=== PATIENT | male | born 1980 | race American Indian/Alaskan Native ===

== ENCOUNTER 2019-01-25 00:51 | Emergency (ER) | payer OTHER ==
[2019-01-25 01:06] VITALS: BP 123/86
[2019-01-25] MEDS ORDERED: ULTRAM PO ONE (06:21)
[2019-01-25] MEDS ORDERED: TRIMOX PO ONE (06:21)
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
== END 2019-01-25 06:56 | disposition home or self-care (01) ==
LOC: ED 00:51
DX: S39.012A Strain of muscle, fascia and tendon of lower back, initial encounter (principal); K02.9 Dental caries, unspecified; I10 Essential (primary) hypertension; F17.200 Nicotine dependence, unspecified, uncomplicated; F12.10 Cannabis abuse, uncomplicated; Y04.8XXA Assault by other bodily force, initial encounter; Y93.89 Activity, other specified; Y92.89 Other specified places as the place of occurrence of the external cause; Y99.8 Other external cause status
CPT/HCPCS: 99282

== ENCOUNTER 2019-02-11 03:11 | Emergency (ER) | payer SELFPAY ==
[2019-02-11 03:45] VITALS: BP 137/99
== END 2019-02-11 07:21 | disposition left against medical advice (07) ==
LOC: ED 03:11
DX: M79.89 Other specified soft tissue disorders (principal); Z53.21 Procedure and treatment not carried out due to patient leaving prior to being seen by health care provider

== ENCOUNTER 2019-11-03 18:58 | Emergency (ER) | payer SELFPAY ==
--- NOTE | 2019-11-03 20:33 | Emergency Department Report ---
Chief Complaint: Urogenital-Male Stated Complaint: STD CHECK Time Seen by Provider: 11/03/19 20:22 - HPI History of Present Illness: Pt presents for HIV testing x today. Denies fever/chills/body aches, dysuria, penile discharge/lesions, hematuria, or other symptoms. - Exam Vital Signs: Vital Signs 11/03/19 19:34 Temperature 98.0 F Pulse Rate 77 Respiratory 18 Rate Blood Pressure 137/89 O2 Sat by Pulse 100 Oximetry MSE screening note: Focused history and physical exam performed. Due to findings the following was ordered: Pt presents for HIV testing x today. Denies fever/chills/body aches, dysuria, penile discharge/lesions, hematuria, or other symptoms. ED Disposition for MSE Condition: Stable
[2019-11-03] MEDS ORDERED: AZITHROMYCIN 250 MG TAB PO ONE (20:36)
[2019-11-03] MEDS ORDERED: LIDOCAINE-MPF (1%) 10 MG/1 ML VIAL 5 ML INFILTRATI ONE (20:36)
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
[2019-11-03 21:40] LABS: Basophils % (Auto) 0.6 % (0.0-1.8); Eosinophils # (Auto) 0.2 K/mm3 (0.0-0.4); Eosinophils % (Auto) 3.4 % (0.0-4.3); Hematocrit 44.9 % (35.5-45.6); Hemoglobin 15.3 gm/dl (11.8-15.2); Lymphocytes # (Auto) 2.3 K/mm3 (1.2-5.4); Lymphocytes % (Auto) 33.9 % (13.4-35.0); Mean Corpuscular HGB Conc 34 % (32-34); Mean Corpuscular Volume 91 fl (84-94); Monocytes # (Auto) 0.6 K/mm3 (0.0-0.8); Monocytes % (Auto) 8.9 % (0.0-7.3); Platelet Count 224 K/mm3 (140-440); Red Blood Count 4.91 M/mm3 (3.65-5.03)
[2019-11-03 22:03] LABS: Alanine Aminotransferase 15 units/L (7-56); Albumin 3.9 g/dL (3.9-5); BUN/Creatinine Ratio 10; Blood Urea Nitrogen 12 mg/dL (9-20); Calcium 9.2 mg/dL (8.4-10.2); Hemolysis Index 8
[2019-11-03 22:10] VITALS: BP 122/84
== END 2019-11-03 22:23 | disposition home or self-care (01) ==
LOC: ED 18:58
DX: Z11.3 Encounter for screening for infections with a predominantly sexual mode of transmission (principal); I10 Essential (primary) hypertension; F17.200 Nicotine dependence, unspecified, uncomplicated
CPT/HCPCS: 36415; 80053; 83690; 85025; 87806; 96372; 99283; J0696

== ENCOUNTER 2021-12-13 23:37 | Emergency (ER) | payer SELFPAY ==
[2021-12-14] MEDS ORDERED: SODIUM CHLORIDE 0.9% 1000 ML 1,000 ML IV ONE ×2 (00:09→02:00)
[2021-12-14 00:10] LABS: Basophils % (Auto) 0.3 % (0.0-1.8); Eosinophils # (Auto) 0.1 K/mm3 (0.0-0.4); Eosinophils % (Auto) 0.7 % (0.0-4.3); Hematocrit 51.7 % (35.5-45.6); Lymphocytes # (Auto) 1.3 K/mm3 (1.2-5.4); Lymphocytes % (Auto) 11.6 % (13.4-35.0); Mean Corpuscular HGB Conc 33 % (32-34); Mean Corpuscular Volume 94 fl (84-94); Monocytes # (Auto) 0.9 K/mm3 (0.0-0.8); Monocytes % (Auto) 8.3 % (0.0-7.3); Platelet Count 312 K/mm3 (140-440); Red Blood Count 5.51 M/mm3 (3.65-5.03); Red Cell Distribution Width 13.3 % (13.2-15.2)
[2021-12-14 00:30] LABS: Alanine Aminotransferase 16 units/L (7-56); Albumin 4.4 g/dL (3.9-5); BUN/Creatinine Ratio 11; Blood Urea Nitrogen 16 mg/dL (9-20); Calcium 9.3 mg/dL (8.4-10.2); Hemolysis Index 24
--- NOTE | 2021-12-14 00:50 | Emergency Department Report ---
ED General Adult HPI - General Chief complaint: Abdominal Pain Stated complaint: BODY CRAMPS Time Seen by Provider: 12/14/21 00:41 Source: patient Mode of arrival: Ambulatory Limitations: No Limitations - History of Present Illness Initial comments: Patient is 41 years old male, unknown past medical history or psychiatric history. Patient presented to the ER for evaluation of diffuse abdominal pain and cramping. Patient stated that he feel he is dehydrated. Patient spoke in a very soft tone and is delusional and paranoid. Patient with very disorganized thoughts. Patient stated that he feel like people are trying to get him. He denied any suicidal homicidal ideation. He also denied any visual or auditory hallucination. Severity scale (0 -10): 5 - Related Data Previous Rx's Medication Instructions Recorded Last Taken Type DOXYCYCLINE Hyclate [Vibramycin] 100 mg PO Q12HR #10 capsule 12/15/21 Unknown Rx Allergies Allergy/AdvReac Type Severity Reaction Status Date / Time No Known Allergies Allergy Verified 02/11/19 08:45 ED Review of Systems ROS: Stated complaint: BODY CRAMPS Other details as noted in HPI Comment: All other systems reviewed and negative Constitutional: denies: chills, fever Respiratory: denies: orthopnea, shortness of breath, SOB with exertion, SOB at rest Cardiovascular: palpitations. denies: chest pain Gastrointestinal: abdominal pain. denies: nausea, vomiting, diarrhea, constipation, hematemesis, melena Musculoskeletal: back pain, myalgia Neurological: denies: headache, weakness, numbness, paresthesias, confusion, abnormal gait Psychiatric: anxiety. denies: auditory hallucinations, visual hallucinations, homicidal thoughts, suicidal thoughts ED Past Medical Hx - Past Medical History Previous Medical History?: Yes Hx Hypertension: Yes - Surgical History Past Surgical History?: No - Social History Smoking Status: Current Every Day Smoker - Medications Home Medications: Home Medications Medication Instructions Recorded Confirmed Last Taken Type DOXYCYCLINE Hyclate [Vibramycin] 100 mg PO Q12HR #10 capsule 12/15/21 Unknown Rx ED Physical Exam - General Limitations: No Limitations General appearance: alert, anxious - Head Head exam: Present: atraumatic, normocephalic, normal inspection - Eye Eye exam: Present: normal appearance - ENT ENT exam: Present: mucous membranes dry - Neck Neck exam: Present: normal inspection, full ROM. Absent: tenderness, meningismus - Respiratory Respiratory exam: Present: normal lung sounds bilaterally - Cardiovascular Cardiovascular Exam: Present: tachycardia - GI/Abdominal GI/Abdominal exam: Present: soft, normal bowel sounds. Absent: distended, tenderness, guarding, rebound, rigid, organomegaly, mass, bruit, pulsatile mass, hernia - Extremities Exam Extremities exam: Present: normal inspection, full ROM, normal capillary refill. Absent: tenderness, pedal edema, joint swelling, calf tenderness - Back Exam Back exam: Present: normal inspection, full ROM. Absent: CVA tenderness (R), CVA tenderness (L), muscle spasm, paraspinal tenderness, vertebral tenderness - Neurological Exam Neurological exam: Present: alert, oriented X3, CN II-XII intact, normal gait, reflexes normal. Absent: motor sensory deficit - Psychiatric Psychiatric exam: Present: normal mood - Skin Skin exam: Present: warm, intact, normal color ED Course Vital Signs 12/13/21 12/14/21 12/14/21 23:39 02:07 03:44 Temperature 98.4 F Pulse Rate 119 H 107 H 106 H Respiratory 20 20 16 Rate Blood Pressure 154/96 137/50 137/88 [Right] O2 Sat by Pulse 98 97 97 Oximetry 12/14/21 12/14/21 12/14/21 05:34 11:04 20:13 Temperature 98.4 F 97.8 F Pulse Rate 96 H 96 H 84 Respiratory 16 18 18 Rate Blood Pressure 109/70 131/82 106/64 [Right] O2 Sat by Pulse 98 99 100 Oximetry 12/15/21 12/15/21 12/15/21 02:02 08:44 19:45 Temperature 98.5 F 97.2 F L 98.8 F Pulse Rate 72 86 70 Respiratory 16 16 18 Rate Blood Pressure 108/62 116/82 107/71 [Right] O2 Sat by Pulse 97 97 95 Oximetry ED Medical Decision Making - Lab Data Result diagrams: 12/14/21 14:16 12/14/21 14:16 - Medical Decision Making Patient is 41 years old male, unknown past medical history or psychiatric history. Patient presented to the ER for evaluation of diffuse abdominal pain and cramping. Patient stated that he feel he is dehydrated. Patient spoke in a very soft tone and is delusional and paranoid. Patient stated that he feel like people are trying to get him. He denied any suicidal homicidal ideation. He also denied any visual or auditory hallucination. Labs reviewed and showed a CK of 500. UDS is positive for cocaine and methamphetamine and marijuana. I believe patient is experiencing drug-induced psychosis. Patient is medically cleared to be evaluated by psychiatric team. Patient does not require involuntary hold. Critical care attestation.: If time is entered above; I have spent that time in minutes in the direct care of this critically ill patient, excluding procedure time. ED Disposition Clinical Impression: Paranoid, Methamphetamine abuse, Cocaine abuse, Drug-induced psychotic disorder Disposition: [address] [place] [address] Is pt being admited?: No Condition: Stable Prescriptions: DOXYCYCLINE Hyclate [Vibramycin] 100 mg PO Q12HR #10 capsule Referrals: SANJUANITA BARRON MD [Primary Care Provider] - 3-5 Days
[2021-12-14 03:20] LABS: Bacteria,Urine 1+ /HPF (Negative); Bilirubin,Urine NEG (Negative); Blood,Urine NEG (Negative); Color,Urine Yellow (Yellow); Hyaline Casts,Urine 2 /LPF; Mucus,Urine 2+ /HPF; Urobilinogen,Urine < 2.0 mg/dL (<2.0)
[2021-12-14 03:28] LABS: Amphetamine Screen,Urine PRESUMPTIVE POSITIVE; Benzodiazepines Screen,Urine PRESUMPTIVE NEGATIVE; Cannabinoid Screen,Urine PRESUMPTIVE POSITIVE; Cocaine Screen,Urine PRESUMPTIVE POSITIVE; Methadone Screen,Urine PRESUMPTIVE NEGATIVE; Opiate Screen,Urine PRESUMPTIVE NEGATIVE
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
[2021-12-14] MEDS ORDERED: LIDOCAINE-MPF (1%) 10 MG/1 ML VIAL 5 ML INFILTRATI ONE (11:53)
[2021-12-14] MEDS ORDERED: LORazepam 2 MG/ML VIAL IM PRN (11:54)
[2021-12-14] MEDS ORDERED: HALOPERIDOL LACTATE 5 MG/1 ML INJ IM PRN (11:54)
--- NOTE | 2021-12-14 11:56 | Event Note ---
Date: 12/14/21 The patient was evaluated in the emergency department for symptoms described in the history of present illness. He/she was evaluated in the context of the global COVID-19 pandemic, which necessitated consideration that the patient might be at risk for infection with the virus that causes COVID-19. Institutional protocols and algorithms that pertain to the evaluation of patients at risk for COVID-19 are in a state of rapid change based on information released by regulatory bodies including the CDC and federal and state organizations. These policies and algorithms were followed during the patient's care in the emergency department. Please note that these policies, procedures and recommendations changed on a rapid basis. Laboratory studies, vital signs, nursing documentation, ER documentation, and psychiatric documentation are reviewed and appreciated. 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 Urinalysis demonstrates bacteriuria and pyuria. Ceftriaxone, doxycycline ordered, in addition to cultures. The patient is awake and not in any acute distress. The patient was deemed medically suitable for psychiatric disposition and placement during his initial ER evaluation. The patient continues to remain medically suitable for psychiatric placement and disposition. He is currently pending psychiatric placement. Elevated CK less than 5000, patient young, and has an appropriate GFR. Elevated CK will decrease with with drug abstinence, rest, and copious oral hydration. Does not meet definition criteria for rhabdomyolysis. Patient remains medically suitable for psychiatric disposition. However, I anticipate that once the patient becomes sober, and metabolizes drug ingestions, we anticipate that he will be dischargeable. Vital Signs 12/13/21 12/14/21 12/14/21 23:39 02:07 03:44 Temperature 98.4 F Pulse Rate 119 H 107 H 106 H Respiratory 20 20 16 Rate Blood Pressure 154/96 137/50 137/88 [Right] O2 Sat by Pulse 98 97 97 Oximetry 12/14/21 12/14/21 05:34 11:04 Temperature 98.4 F Pulse Rate 96 H 96 H Respiratory 16 18 Rate Blood Pressure 109/70 131/82 [Right] O2 Sat by Pulse 98 99 Oximetry Lab Results 12/13/21 12/13/21 12/14/21 Range/Units 23:57 23:57 00:07 WBC 10.9 (4.5-11.0) K/mm3 RBC 5.51 H (3.65-5.03) M/mm3 Hgb 17.0 H (11.8-15.2) gm/dl Hct 51.7 H (35.5-45.6) % MCV 94 (84-94) fl MCH 31 (28-32) pg MCHC 33 (32-34) % RDW 13.3 (13.2-15.2) % Plt Count 312 (140-440) K/mm3 Lymph % (Auto) 11.6 L (13.4-35.0) % [place] % (Auto) 8.3 H (0.0-7.3) % Eos % (Auto) 0.7 (0.0-4.3) % Baso % (Auto) 0.3 (0.0-1.8) % Lymph # (Auto) 1.3 (1.2-5.4) K/mm3 [place] # (Auto) 0.9 H (0.0-0.8) K/mm3 Eos # (Auto) 0.1 (0.0-0.4) K/mm3 Baso # (Auto) 0.0 (0.0-0.1) K/mm3 Seg Neutrophils % 79.1 H (40.0-70.0) % Seg Neutrophils # 8.6 H (1.8-7.7) K/mm3 Sodium 134 L (137-145) mmol/L Potassium 4.0 (3.6-5.0) mmol/L Chloride 96.9 L (98-107) mmol/L Carbon Dioxide 21 L (22-30) mmol/L Anion Gap 20 mmol/L BUN 16 (9-20) mg/dL Creatinine 1.4 H (0.8-1.3) mg/dL Estimated GFR > 60 ml/min BUN/Creatinine Ratio 11 % Glucose 109 H (75-100) mg/dL Calcium 9.3 (8.4-10.2) mg/dL Total Bilirubin 1.00 (0.1-1.2) mg/dL AST 21 (5-40) units/L ALT 16 (7-56) units/L Alkaline Phosphatase 123 (35-129) units/L Total Creatine Kinase 548 H (55-170) units/L Total Protein 8.0 (6.3-8.2) g/dL Albumin 4.4 (3.9-5) g/dL Albumin/Globulin Ratio 1.2 % Lipase 19 (13-60) units/L Urine Color (Yellow) Urine Turbidity (Clear) Urine pH (5.0-7.0) Ur Specific [place] (1.003-1.030) Urine Protein (Negative) mg/dL Urine Glucose (UA) (Negative) mg/dL Urine Ketones (Negative) mg/dL Urine Blood (Negative) Urine Nitrite (Negative) Urine Bilirubin (Negative) Urine Urobilinogen (<2.0) mg/dL Ur Leukocyte Esterase (Negative) Urine WBC (Auto) (0.0-6.0) /HPF Urine RBC (Auto) (0.0-6.0) /HPF U Epithel Cells (Auto) (0-13.0) /HPF Urine Bacteria (Auto) (Negative) /HPF Hyaline Casts /LPF Urine Mucus /HPF Salicylates (2.8-20.0) mg/dL Urine Opiates Screen Urine Methadone Screen Acetaminophen (10.0-30.0) ug/mL Ur Barbiturates Screen Ur Phencyclidine Scrn Ur Amphetamines Screen U Benzodiazepines Scrn Urine Cocaine Screen U Marijuana (THC) Screen Drugs of Abuse Note Plasma/Serum Alcohol (0-0.07) % SARS-CoV-2 (PCR) (Negative) 12/14/21 12/14/21 12/14/21 Range/Units 00:26 00:26 00:26 WBC (4.5-11.0) K/mm3 RBC (3.65-5.03) M/mm3 Hgb (11.8-15.2) gm/dl Hct (35.5-45.6) % MCV (84-94) fl MCH (28-32) pg MCHC (32-34) % RDW (13.2-15.2) % Plt Count (140-440) K/mm3 Lymph % (Auto) (13.4-35.0) % [place] % (Auto) (0.0-7.3) % Eos % (Auto) (0.0-4.3) % Baso % (Auto) (0.0-1.8) % Lymph # (Auto) (1.2-5.4) K/mm3 [place] # (Auto) (0.0-0.8) K/mm3 Eos # (Auto) (0.0-0.4) K/mm3 Baso # (Auto) (0.0-0.1) K/mm3 Seg Neutrophils % (40.0-70.0) % Seg Neutrophils # (1.8-7.7) K/mm3 Sodium (137-145) mmol/L Potassium (3.6-5.0) mmol/L Chloride (98-107) mmol/L Carbon Dioxide (22-30) mmol/L Anion Gap mmol/L BUN (9-20) mg/dL Creatinine (0.8-1.3) mg/dL Estimated GFR ml/min BUN/Creatinine Ratio % Glucose (75-100) mg/dL Calcium (8.4-10.2) mg/dL Total Bilirubin (0.1-1.2) mg/dL AST (5-40) units/L ALT (7-56) units/L Alkaline Phosphatase (35-129) units/L Total Creatine Kinase (55-170) units/L Total Protein (6.3-8.2) g/dL Albumin (3.9-5) g/dL Albumin/Globulin Ratio % Lipase (13-60) units/L Urine Color (Yellow) Urine Turbidity (Clear) Urine pH (5.0-7.0) Ur Specific [place] (1.003-1.030) Urine Protein (Negative) mg/dL Urine Glucose (UA) (Negative) mg/dL Urine Ketones (Negative) mg/dL Urine Blood (Negative) Urine Nitrite (Negative) Urine Bilirubin (Negative) Urine Urobilinogen (<2.0) mg/dL Ur Leukocyte Esterase (Negative) Urine WBC (Auto) (0.0-6.0) /HPF Urine RBC (Auto) (0.0-6.0) /HPF U Epithel Cells (Auto) (0-13.0) /HPF Urine Bacteria (Auto) (Negative) /HPF Hyaline Casts /LPF Urine Mucus /HPF Salicylates < 0.3 L (2.8-20.0) mg/dL Urine Opiates Screen Urine Methadone Screen Acetaminophen 5.0 L (10.0-30.0) ug/mL Ur Barbiturates Screen Ur Phencyclidine Scrn Ur Amphetamines Screen U Benzodiazepines Scrn Urine Cocaine Screen U Marijuana (THC) Screen Drugs of Abuse Note Plasma/Serum Alcohol < 0.01 (0-0.07) % SARS-CoV-2 (PCR) (Negative) 12/14/21 12/14/21 12/14/21 Range/Units 03:00 03:00 09:30 WBC (4.5-11.0) K/mm3 RBC (3.65-5.03) M/mm3 Hgb (11.8-15.2) gm/dl Hct (35.5-45.6) % MCV (84-94) fl MCH (28-32) pg MCHC (32-34) % RDW (13.2-15.2) % Plt Count (140-440) K/mm3 Lymph % (Auto) (13.4-35.0) % [place] % (Auto) (0.0-7.3) % Eos % (Auto) (0.0-4.3) % Baso % (Auto) (0.0-1.8) % Lymph # (Auto) (1.2-5.4) K/mm3 [place] # (Auto) (0.0-0.8) K/mm3 Eos # (Auto) (0.0-0.4) K/mm3 Baso # (Auto) (0.0-0.1) K/mm3 Seg Neutrophils % (40.0-70.0) % Seg Neutrophils # (1.8-7.7) K/mm3 Sodium (137-145) mmol/L Potassium (3.6-5.0) mmol/L Chloride (98-107) mmol/L Carbon Dioxide (22-30) mmol/L Anion Gap mmol/L BUN (9-20) mg/dL Creatinine (0.8-1.3) mg/dL Estimated GFR ml/min BUN/Creatinine Ratio % Glucose (75-100) mg/dL Calcium (8.4-10.2) mg/dL Total Bilirubin (0.1-1.2) mg/dL AST (5-40) units/L ALT (7-56) units/L Alkaline Phosphatase (35-129) units/L Total Creatine Kinase (55-170) units/L Total Protein (6.3-8.2) g/dL Albumin (3.9-5) g/dL Albumin/Globulin Ratio % Lipase (13-60) units/L Urine Color Yellow (Yellow) Urine Turbidity Clear (Clear) Urine pH 5.0 (5.0-7.0) Ur Specific [place] 1.017 (1.003-1.030) Urine Protein 30 mg/dl (Negative) mg/dL Urine Glucose (UA) Neg (Negative) mg/dL Urine Ketones 80 (Negative) mg/dL Urine Blood Neg (Negative) Urine Nitrite Neg (Negative) Urine Bilirubin Neg (Negative) Urine Urobilinogen < 2.0 (<2.0) mg/dL Ur Leukocyte Esterase Sm (Negative) Urine WBC (Auto) 30.0 H (0.0-6.0) /HPF Urine RBC (Auto) 1.0 (0.0-6.0) /HPF U Epithel Cells (Auto) 1.0 (0-13.0) /HPF Urine Bacteria (Auto) 1+ (Negative) /HPF Hyaline Casts 2 /LPF Urine Mucus 2+ /HPF Salicylates (2.8-20.0) mg/dL Urine Opiates Screen Presumptive negative Urine Methadone Screen Presumptive negative Acetaminophen (10.0-30.0) ug/mL Ur Barbiturates Screen Presumptive negative Ur Phencyclidine Scrn Presumptive negative Ur Amphetamines Screen Presumptive positive U Benzodiazepines Scrn Presumptive negative Urine Cocaine Screen Presumptive positive U Marijuana (THC) Screen Presumptive positive Drugs of Abuse Note Disclamer Plasma/Serum Alcohol (0-0.07) % SARS-CoV-2 (PCR) Negative (Negative)
[2021-12-14] MEDS: DOXYCYCLINE 100 MG CAP PO SCH (13:11)
[2021-12-14 14:56] LABS: Hematocrit 49.2 % (35.5-45.6); Hemoglobin 16.1 gm/dl (11.8-15.2); Mean Corpuscular HGB Conc 33 % (32-34); Mean Corpuscular Volume 94 fl (84-94); Platelet Count 278 K/mm3 (140-440); Red Blood Count 5.21 M/mm3 (3.65-5.03); Red Cell Distribution Width 13.5 % (13.2-15.2)
[2021-12-14 14:57] LABS: Eosinophils % (Auto) 1.7 % (0.0-4.3); Lymphocytes # (Auto) 1.1 K/mm3 (1.2-5.4); Lymphocytes % (Auto) 13.6 % (13.4-35.0); Monocytes % (Auto) 10.1 % (0.0-7.3)
[2021-12-14 14:58] LABS: Basophils # (Auto) 0.4 K/mm3 (0.0-0.1); Eosinophils # (Auto) 0.1 K/mm3 (0.0-0.4); Monocytes # (Auto) 0.8 K/mm3 (0.0-0.8)
[2021-12-14 15:04] LABS: Alanine Aminotransferase 12 units/L (7-56); Albumin 4.2 g/dL (3.9-5); BUN/Creatinine Ratio 13; Blood Urea Nitrogen 16 mg/dL (9-20); Calcium 9.5 mg/dL (8.4-10.2); Hemolysis Index 21
[2021-12-15] MEDS: DOXYCYCLINE 100 MG CAP PO SCH ×3 (00:05→21:57)
[2021-12-15] MEDS: traZODone 50 MG TAB PO SCH ×2 (00:05→21:57)
--- NOTE | 2021-12-15 11:17 | Progress Note ---
Subjective - Reason for Consult Consult date: 12/15/21 Reason for consult: psychosis - Chief Complaint Chief complaint: The patient was seen today. He is responding to internal stimuli, although he denies hallucinations. He is guarded and is suspicious. He's whispering and doesn't make eye contact. He denies SI/HI REVIEW OF SYSTEMS Constitutional: Negative for weight loss ENT: Negative for stridor Respiratory: Negative for cough or hemoptysis All other systems reviewed and are negative MENTAL STATUS EXAMINATION General Appearance and Behavior: Age appropriate, good hygiene, wearing appropriate clothes, good eye contact, cooperative with questioning Cooperation: Participating/engaged Psychomotor Behavior: unremarkable and within normal limits Mood: okay Affect and affective range: congruent with mood Thought Process: illogical Thought Content: hallucinations, delusions Speech: Whispering Suicidal Ideation: Denies Homicidal Ideation: Denies Hallucinations: A/V Delusions: Yes, paranoid Impulse Control: Limited Insight and Judgment:Poor insight and poor judgment Memory: Normal Attention: Normal Orientation: Alert, oriented. Assessment and Plan (1) Acute Psychosis Treatment Plan 1013 Increase Olanzapine 10mg po daily Trazodone 50mg po qhs Vistaril 50mg po BID Risks, benefits and alternatives of medications discussed with the patient, questions answered and consent obtained from patient. PSYCHOTHERAPY: Supportive psychotherapy provided MEDICAL: Per primary team DELIRIUM PRECAUTIONS: Please re-orient patient frequently, keep lights on during the day, and minimize benzodiazepines and opiates as these medications could worsen patient's confusion. 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 FOLLOW-UP: Will follow. Thank you for the consult. Please contact with any questions and/or concerns. Case staffed with Dr. Zaldivar Mental Status Exam - Vital signs Last Vital Signs Temp 97.2 F L 12/15/21 08:44 Pulse 86 12/15/21 08:44 Resp 16 12/15/21 08:44 BP 116/82 12/15/21 08:44 Pulse Ox 97 12/15/21 08:44
[2021-12-15] MEDS ORDERED: SODIUM CHLORIDE 0.9% 1000 ML 1,000 ML IV ONE ×2 (11:20)
--- NOTE | 2021-12-15 11:21 | Emergency Department Report ---
Blank Doc - Documentation Documentation: Patient has no complaints. Psychiatric facilities have refused to take this g aishwarya because his CPK has gone from 500-700. IV fluids have been ordered. He has no concerns. There were no events of the course of the night. We are still awaiting psychiatric disposition.
[2021-12-15] MEDS ORDERED: LACTATED RINGERS 1,000 ML IV SCH (17:45)
[2021-12-15 20:27] VITALS: BP 107/71
== END 2021-12-15 23:40 ==
LOC: ED 23:37
DX: F14.959 Cocaine use, unspecified with cocaine-induced psychotic disorder, unspecified (principal); F60.0 Paranoid personality disorder; F19.10 Other psychoactive substance abuse, uncomplicated; I10 Essential (primary) hypertension; F17.200 Nicotine dependence, unspecified, uncomplicated; Z20.822 Contact with and (suspected) exposure to COVID-19; Z79.899 Other long term (current) drug therapy
CPT/HCPCS: 36415; 80053; 80307; 81001; 82550; 83690; 85025; 87086; 96360; 96361; 96372; 99285; J0696; J3490; J7030; Q0177; U0003; 80320; Q0162; G0480